=== PATIENT | female | born 1970 | race Caucasian/White ===

== ENCOUNTER 2020-01-12 12:15 | Inpatient (IN) | payer OTHER ==
[~2020-01-12] VITALS: Ht 162.6 cm; Wt 65.8 kg
[~2020-01-12 12:15] MED LIST: NABUMETONE500 MG PO; TUSSIONEX PENNKI5 ML PO; ZYBAN150 MG PO
[2020-01-17] MEDS ORDERED: MOTRIN IB200 MG PO (13:49)
[2020-01-17] MEDS ORDERED: CODE1TAB37 PO (13:50)
== END 2020-01-17 14:46 | disposition home or self-care (01) | DRG 743 ==
LOC: ADM 12:15 → EDSTATUS 12:15 → OB/GYN 01-15 05:50 → O/R 01-15 05:50 → OB/GYN 01-15 12:15
PROVIDERS: ADMIT Obstetrics & Gynecology; ATTEND Obstetrics & Gynecology
PROC: 0UB70ZZ Excision of Bilateral Fallopian Tubes, Open Approach (ICD-10-PCS; 2020-01-15)
PROC: 0UT90ZZ Resection of Uterus, Open Approach (ICD-10-PCS; principal; 2020-01-15 08:30)
DX: N72 Inflammatory disease of cervix uteri (principal); D25.1 Intramural leiomyoma of uterus; D25.0 Submucous leiomyoma of uterus; N83.8 Other noninflammatory disorders of ovary, fallopian tube and broad ligament